=== PATIENT | male | born 1985 | race Caucasian/White ===

== ENCOUNTER 2019-01-30 17:37 | Emergency (ER) | payer OTHER ==
[~2019-01-30] VITALS: Ht 193 cm; Wt 108.9 kg
[~2019-01-30 17:37] MED LIST: CEPH500 PO; CYCL10 PO; ERYT500 PO; HYDACE5 PO; Naprosyn500 MG PO; Neurontin 300300 MG PO; PENVK500 PO; PROP65 PO; Prednisone20 MG PO; TRAM50 PO; Ultram50 MG PO
[2019-01-30] MEDS ORDERED: Norco 5-325 Ta1 EACH PO (19:28)
[2019-01-30] MEDS ORDERED: KETO10 PO (19:28)
== END 2019-01-30 19:40 | disposition home or self-care (01) ==
LOC: ER 17:37
DX: S16.1XXA Strain of muscle, fascia and tendon at neck level, initial encounter (principal); M26.69 Other specified disorders of temporomandibular joint; F17.200 Nicotine dependence, unspecified, uncomplicated; Z88.2 Allergy status to sulfonamides; Z88.1 Allergy status to other antibiotic agents; Z88.0 Allergy status to penicillin; V49.50XA Passenger injured in collision with unspecified motor vehicles in traffic accident, initial encounter
CPT/HCPCS: 70486; 99284-25

== ENCOUNTER 2019-03-09 00:07 | Emergency (ER) | payer OTHER ==
[~2019-03-09] VITALS: Ht 193 cm; Wt 113.4 kg
[~2019-03-09 00:07] MED LIST changes: +KETO10 PO; +Norco 5-325 Ta1 EACH PO
== END 2019-03-09 02:02 | disposition home or self-care (01) ==
LOC: ER 00:07
DX: R06.02 Shortness of breath (principal); R09.81 Nasal congestion; R09.82 Postnasal drip; R00.0 Tachycardia, unspecified; F17.200 Nicotine dependence, unspecified, uncomplicated; Z88.2 Allergy status to sulfonamides; Z88.0 Allergy status to penicillin; Z88.1 Allergy status to other antibiotic agents
CPT/HCPCS: 71045; 93005; 93010; 99285-25

== ENCOUNTER → 2021-02-03 | Outpatient (CLI) | payer OTHER | LOC: LAB SHORT 12:00 → LAB 12:00 | DX: R21 Rash and other nonspecific skin eruption (principal) | CPT/HCPCS: 87070; 87205 ==

== ENCOUNTER 2022-08-08 07:59 | Emergency (ER) | payer OTHER ==
[~2022-08-08] VITALS: Ht 193 cm; Wt 99.3 kg
[2022-08-08] MEDS ORDERED: PRED20 PO (10:17)
== END 2022-08-08 10:40 | disposition home or self-care (01) ==
LOC: ER 07:59
DX: M54.50 Low back pain, unspecified (principal); G89.29 Other chronic pain
CPT/HCPCS: 72100; 99283-25; A9270; J1885; J7512

== ENCOUNTER 2022-09-05 21:23 | Emergency (ER) | payer OTHER ==
[~2022-09-05] VITALS: Ht 193 cm; Wt 104.3 kg
[~2022-09-05 21:23] MED LIST changes: +PRED20 PO
[2022-09-05] MEDS ORDERED: AMOCLA875 PO (21:36)
== END 2022-09-05 21:42 | disposition home or self-care (01) ==
LOC: ER 21:23
DX: K04.7 Periapical abscess without sinus (principal); M54.50 Low back pain, unspecified; G89.29 Other chronic pain; Z88.1 Allergy status to other antibiotic agents; Z88.2 Allergy status to sulfonamides; Z88.0 Allergy status to penicillin; Z79.899 Other long term (current) drug therapy; F17.210 Nicotine dependence, cigarettes, uncomplicated
CPT/HCPCS: 99282; A9270